=== PATIENT | female | born 1990 | race Caucasian/White ===

== ENCOUNTER → 2024-04-18 13:50 | Outpatient (REF) | payer BC, SELFPAY | LOC: RAD 13:50 | PROVIDERS: ATTENDING PHYSICIAN Nurse Practitioner Family; FAMILY PHYSICIAN Family Medicine | DX: O26.859 Spotting complicating pregnancy, unspecified trimester (principal) | CPT/HCPCS: 76801 ==

== ENCOUNTER → 2024-06-22 06:47 | Outpatient (REF) | payer OTHER, SELFPAY | LOC: PNTC 06:47 | PROVIDERS: ATTENDING PHYSICIAN Obstetrics & Gynecology | DX: Z34.80 Encounter for supervision of other normal pregnancy, unspecified trimester (principal) | CPT/HCPCS: 76805 ==

== ENCOUNTER → 2024-07-26 15:17 | Outpatient (REF) | payer OTHER, SELFPAY | LOC: PNTC 15:17 | PROVIDERS: ATTENDING PHYSICIAN Obstetrics & Gynecology | DX: O46.90 Antepartum hemorrhage, unspecified, unspecified trimester (principal) | CPT/HCPCS: 76816 ==

== ENCOUNTER → 2024-08-28 17:28 | Outpatient (REF) | payer OTHER, SELFPAY | LOC: PNTC 17:28 | PROVIDERS: ATTENDING PHYSICIAN Student in an Organized Health Care Education/Training Program | DX: O43.199 Other malformation of placenta, unspecified trimester (principal); O46.90 Antepartum hemorrhage, unspecified, unspecified trimester | CPT/HCPCS: 76816 ==

== ENCOUNTER 2024-09-04 05:01 | Observation (INO) | payer OTHER, SELFPAY ==
[2024-09-04 05:12] VITALS: BMI 24.3
[2024-09-04 05:15] VITALS: BP 110/59
== END 2024-09-04 06:30 | disposition home or self-care (01) ==
LOC: LDRP 05:01
PROVIDERS: ADMITTING PHYSICIAN Obstetrics & Gynecology
DX: Z03.79 Encounter for other suspected maternal and fetal conditions ruled out (principal)
CPT/HCPCS: G0378

== ENCOUNTER 2024-09-04 19:37 | Inpatient (IN) | payer OTHER, SELFPAY ==
[2024-09-04 19:54] VITALS: BP 104/59; BMI 24.5
[2024-09-04] MEDS: LR 1000 IV (21:39)
[2024-09-04] MEDS: AMPICILLIN 108 MG IV (21:48)
[2024-09-04 21:52] LABS: Urine Albumin Trace (Neg - Trace); Urine Bilirubin Negative (Negative); Urine Character Slightly Cloudy (Clear); Urine Color Yellow; Urine Glucose Negative (Negative); Urine Ketone Negative (Negative); Urine Leukocyte Trace (Negative); Urine Nitrite Negative (Negative); Urine Occult Blood 2+ (Negative); Urine Urobilinogen Negative (Neg - 1+)
[2024-09-04 21:55] LABS: % Basophils 0.3 % (0-2); % Eosinophils 0.5 % (0-6); % Immature Granulocytes 1.6 % (0-0.5); % Lymphocytes 16.7 % (20.5-51.1); % Monocytes 7.4 % (1.7-9.3); % Neutrophils 73.5 % (42.2-75.2); Absolute Basophils 0.1 10^3/uL (0-0.2); Absolute Eosinophils 0.1 10^3/uL (0-0.7); Absolute Immature Granulocytes 0.2 10^3/uL (0-0.05); Absolute Lymphocytes 2.5 10^3/uL (1.2-3.4); Absolute Monocytes 1.1 10^3/uL (0.1-0.6); Absolute Neutrophils 10.8 10^3/uL (1.4-6.5); Hematocrit 41.4 % (37.0-47.0); Hemoglobin 14.3 g/dL (12.0-16.0); Mean Corp Hgb Conc. 34.5 g/dL (33.0-37.0); Mean Corpuscular Hgb 31.6 pg (27.0-31.0); Mean Corpuscular Volume 91.6 fL (81.0-99.0); Mean Platelet Volume 9.9 fL (7.4-10.4); Nucleated Red Blood Cells % 0 %; Platelet Count 251 10^3/uL (130-400); Red Blood Cell Count 4.52 10^6/uL (4.20-5.40); Red Cell Dist. Width 12.2 % (11.5-14.5); White Blood Cell Count 14.7 10^3/uL (4.8-10.8)
[2024-09-04 21:58] LABS: Urine Squamous Cell 16-20 /LPF (Few)
[2024-09-04 21:59] LABS: Urine Bacteria Few (Negative); Urine Red Blood Cell 16-20 /HPF (0-2)
[2024-09-04] MEDS: CELESTONE SOLUSPAN 2 MG IM (22:05)
[2024-09-04 22:10] LABS: ALT (SGPT) 14 U/L (0-35); AST (SGOT) 27 U/L (14-36); Albumin 4.2 g/dl (3.5-5.0); Alkaline Phosphatase 85 U/L (38-126); Blood Urea Nitrogen 13 mg/dl (7-17); Calcium 9.7 mg/dl (8.4-10.2); Carbon Dioxide 24 mmol/L (22-30); Chloride 100 mmol/L (98-107); Estimated Creatinine Clearance 119 ml/min; Glucose 85 mg/dl (70-99); Sodium 131 mmol/L (135-145); Total Bilirubin 0.5 mg/dl (0.2-1.3); Total Protein 6.8 g/dl (6.3-8.2); eGFR > 60.00
--- NOTE | 2024-09-04 22:22 | CON.NEO ---
Consultation
-
Date/Time Consultation Requested: 09/04/24 @ 2130
Date/Time Consultation Performed: 09/04/24 @ 2139
Requesting Provider: Yessi Saxena
Performing Provider: Tere
Reason for Consultation: 34 yo at 31 2/7 weeks with PROM , not in labor.
Consultation - Neonatology
Maternal Labs
Blood Type: O Positive
Antibody Screen: Negative
RPR: Nonreactive
Rubella: Immune
Hep B S Ag: Negative
Hep C: Negative
HIV: Nonreactive
Group B Strep: Unknown
Chlamydia/GC: Negative
Consult
Points discussed at consult:
- Management at delivery including the possibility of CPAP/intubation/surfactant discussed
- Respiratory: RDS possibility with possibility of worsening for 24-48 hrs, management including CPAP/surfactant/ventilator support may be required
- Nutrition: Hypoglycemia, need for IV fluids, gradual feed advance, Gavage feeding, importance of colostrum feeding, initiation of expression of colostrum within 3-4 hours, availability of donor milk, safety fo donor milk etc. were discussed.
- Procedures: Intubation, CPAP, IV placement, blood tests, umbilical arterial or venous lines, gavage feedings were discussed
- CVS: possibility of PDA not discussed in detail at this time
- TOBACCO FLAVORER: Rare possibility of IVH and need for head US, grading of IVH and local [employer] effects of Grade III/IV although extremely rare at >32 weeks were discussed
- Jaundice possibility and need for phototherapy discussed
- Family Centered Care: Discussed FCC with emphasis on parental participation during sign off and during management rounds and is encouraged. Availability of megan eyes camera also discussed
- COVID-19: Visitation policy, modifications related to COVID-19, ever changing guidelines were discussed
Mom and Dad were given the opportunity to ask questions throughout and open invitation to call if any questions come as they absorb all the information given so far.
Face to Face Time
Total Gits-um-Efjf Time (in Minutes): 35 mins
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
[2024-09-04] MEDS: ERYTHROCIN 105 MG IV (23:31)
[2024-09-05] MEDS: AMPICILLIN 108 MG IV ×4 (04:37→22:00)
[2024-09-05] MEDS: ERYTHROCIN 105 MG IV ×4 (05:59→23:50)
[2024-09-05] MEDS: CELESTONE SOLUSPAN 2 MG IM (21:59)
[2024-09-06] MEDS: AMPICILLIN 108 MG IV ×3 (05:11→17:00)
[2024-09-06] MEDS: ERYTHROCIN 105 MG IV ×2 (08:27→14:26)
[2024-09-06] MEDS: ZITHROMAX 1000 MG PO (20:17)
[2024-09-06] MEDS: AMOXIL 500 MG PO (23:05)
[2024-09-07] MEDS: AMOXIL 500 MG PO ×3 (06:42→23:08)
[2024-09-07] MEDS: FLUSH (NSS) 1 FLUSH IV ×2 (10:49→21:02)
[2024-09-07 15:06] LABS: Glucose - Point of Care 101 mg/dl (70-99)
[2024-09-07 20:58] LABS: Glucose - Point of Care 96 mg/dl (70-99)
[2024-09-08] MEDS: AMOXIL 500 MG PO ×2 (06:45→19:07)
[2024-09-08 06:49] LABS: Glucose - Point of Care 77 mg/dl (70-99)
[2024-09-08 10:43] LABS: Glucose - Point of Care 82 mg/dl (70-99)
[2024-09-08 16:21] LABS: Glucose - Point of Care 100 mg/dl (70-99)
[2024-09-08 21:13] LABS: Glucose - Point of Care 93 mg/dl (70-99)
[2024-09-09] MEDS: AMOXIL 500 MG PO ×4 (00:56→23:13)
[2024-09-09 06:32] LABS: Glucose - Point of Care 89 mg/dl (70-99)
[2024-09-09 12:12] LABS: Glucose - Point of Care 94 mg/dl (70-99)
[2024-09-09 15:08] LABS: Glucose - Point of Care 88 mg/dl (70-99)
[2024-09-09 20:36] LABS: Glucose - Point of Care 99 mg/dl (70-99)
[2024-09-10 03:14] LABS: % Basophils 0.6 % (0-2); % Eosinophils 0.6 % (0-6); % Immature Granulocytes 4.5 % (0-0.5); % Lymphocytes 9.6 % (20.5-51.1); % Monocytes 10.6 % (1.7-9.3); % Neutrophils 74.1 % (42.2-75.2); Absolute Basophils 0.1 10^3/uL (0-0.2); Absolute Eosinophils 0.1 10^3/uL (0-0.7); Absolute Immature Granulocytes 0.5 10^3/uL (0-0.05); Absolute Lymphocytes 1.1 10^3/uL (1.2-3.4); Absolute Monocytes 1.2 10^3/uL (0.1-0.6); Absolute Neutrophils 8.5 10^3/uL (1.4-6.5); Hematocrit 42.7 % (37.0-47.0); Hemoglobin 14.6 g/dL (12.0-16.0); Mean Corp Hgb Conc. 34.2 g/dL (33.0-37.0); Mean Corpuscular Hgb 30.9 pg (27.0-31.0); Mean Corpuscular Volume 90.5 fL (81.0-99.0); Mean Platelet Volume 10.4 fL (7.4-10.4); Nucleated Red Blood Cells % 0 %; Platelet Count 236 10^3/uL (130-400); Red Blood Cell Count 4.72 10^6/uL (4.20-5.40); Red Cell Dist. Width 12.4 % (11.5-14.5); White Blood Cell Count 11.5 10^3/uL (4.8-10.8)
[2024-09-10] MEDS: AMOXIL 500 MG PO ×3 (08:01→22:26)
[2024-09-10] MEDS: FLUSH (NSS) 1 FLUSH IV (15:44)
[2024-09-11] MEDS: AMOXIL 500 MG PO ×2 (06:42→14:45)
[2024-09-11 17:27] VITALS: BMI 23.2
[2024-09-11] MEDS: FLUSH (NSS) 1 FLUSH IV (22:00)
[2024-09-12] MEDS: BENADRYL 50 MG PO (08:15)
[2024-09-14] MEDS: LR 1000 IV ×2 (10:26→20:40)
[2024-09-14] MEDS: VANCOCIN 275 MG IV (10:55)
[2024-09-14] MEDS: TYLENOL 1000 MG PO (15:24)
[2024-09-14] MEDS: BICITRA 30 ML PO (15:24)
[2024-09-14] MEDS: CLEOCIN 50 IV (15:24)
[2024-09-14] MEDS: GENTAMICIN 57.875 MG IV (15:43)
[2024-09-14] MEDS: PITOCIN 30 UNITS/NSS 500 ML IV (16:05)
[2024-09-14] MEDS: TYLENOL 650 MG PO (20:39)
[2024-09-14] MEDS: TORADOL 15 MG IV (22:01)
[2024-09-15] MEDS: TORADOL 15 MG IV ×3 (03:57→16:34)
[2024-09-15] MEDS: TYLENOL 650 MG PO ×2 (04:46→08:34)
[2024-09-15 05:42] LABS: Hematocrit 38.3 % (37.0-47.0); Hemoglobin 13.3 g/dL (12.0-16.0); Mean Corp Hgb Conc. 34.7 g/dL (33.0-37.0); Mean Corpuscular Hgb 31.6 pg (27.0-31.0); Platelet Count 253 10^3/uL (130-400); Red Blood Cell Count 4.21 10^6/uL (4.20-5.40); Red Cell Dist. Width 11.9 % (11.5-14.5); White Blood Cell Count 23.1 10^3/uL (4.8-10.8)
[2024-09-15] MEDS: SENOKOT-S 1 TABLET PO (07:56)
--- NOTE | 2024-09-15 08:01 | W.PN.ANS.POP ---
Anesthesia Post Operative
- Anesthesia Post Op Note
Vital Signs Stable-See Nursing Note: Yes
Airway Patent: Yes
Adequate Pain Control: Yes
Change in Mental Status: No
Current Postoperative Nausea & Vomiting: No
Anesthesia Complications: No (Pt complaining of headache, worsens with sitting.)
General Anesthetic Recall: No
Unplanned Admission: No
Post Op Hydration Adequate: Yes
[2024-09-15 08:24] LABS: Cord VBG B.E. - POC -0.9 mmol/L; Cord VBG HCO3 - POC 24 mmol/L; Cord VBG pCO2 - POC 39 mmHg; Cord VBG pO2 - POC < 40 mmHg
[2024-09-15 16:37] LABS: Syphilis/T. pallidum Ab Reflex Negative (Negative)
[2024-09-16] MEDS: MOTRIN 600 MG PO ×2 (04:08→10:05)
[2024-09-16] MEDS: TYLENOL 650 MG PO ×2 (04:08→10:05)
--- NOTE | 2024-09-16 11:35 | W.PN.ANES ---
Anesthesia Note
- -
09/16/24 11:35
Pt c/o positional frontal headache with occassional mild neck stiffness. No cranial nerve symptoms. She is asymptomatic lying supine. Patient is post on 09/14/24 at 1533. Spinal anesthesia was performed without difficulty. She reports
symptoms starting approx. 6 hours after delivery. The severity does wax and wane as she thought she was improving yesterday. We discussed conservative treatment (hydration, caffeine, and analgesics) and also an epidural blood patch if the symptoms
are deemed too severe affecting her ability to carry out daily duties. Risks and benefits were discussed at length. She will consider her options in light of the severity of her symptoms.
Active Medications
Acetaminophen (Acetaminophen 325 Mg Tablet) 650 mg PO Q4HPRN PRN
PRN Reason: mild pain
Stop: 10/12/24 16:32
Last Admin: 09/16/24 10:05 Dose: 650 mg
Calcium Carbonate (Calcium Antacid 200 Mg (Calcium Carbonate 500 Mg) Chew Tablet) 400 mg PO Q6HPRN PRN
PRN Reason: indigestion
Stop: 10/12/24 16:32
Diphenhydramine HCl (Diphenhydramine 50 Mg Capsule) 50 mg PO Q6HPRN PRN
PRN Reason: itching, rash
Stop: 10/10/24 08:06
Last Admin: 09/12/24 08:15 Dose: 50 mg
Diphtheria/Tetanus/Acell Pertussis (Adacel (Tetanus/Dipth/Acellular Pertussis) 0.5 Ml) 0.5 ml IM .ONCE ONE
Stop: 09/17/24 08:01
Oxytocin/Sodium Chloride (Pitocin 30 Units/Nss 500 Ml) 30 unit in 500 mls @ 0 mls/hr IV PRN PRN
PRN Reason: excessive bleeding
Stop: 10/12/24 16:32
Ibuprofen (Ibuprofen 600 Mg Tablet) 600 mg PO Q6HPRN PRN
PRN Reason: cramps
Stop: 10/13/24 21:59
Last Admin: 09/16/24 10:05 Dose: 600 mg
Methylergonovine Maleate (Methergine (0.2 Mg/Ml) 1 Ml Injection) 0.2 mg IM ONCE PRN PRN
PRN Reason: excessive bleeding
Metoclopramide HCl (Metoclopramide 10 Mg/2 Ml Vial) 10 mg IV Q6HPRN PRN
PRN Reason: nausea/vomiting
Stop: 10/12/24 16:32
Oxycodone/Acetaminophen (Oxycodone 5 Mg/Apap 325 Mg (Percocet)) 1 tablet PO Q4HPRN PRN
PRN Reason: moderate pain
Stop: 09/28/24 16:32
Oxycodone/Acetaminophen (Oxycodone 5 Mg/Apap 325 Mg (Percocet)) 2 tablet PO Q4HPRN PRN
PRN Reason: severe pain
Stop: 09/28/24 16:32
Prenat Multivit/[employer]/Iron/Folic Ac ( Multiple Vitamin/Minerals With Iron Tablet) 1 tablet PO DAILY JASON
Stop: 10/13/24 07:59
Last Admin: 09/16/24 10:03 Dose: Not Given
Senna/Docusate Sodium (Docusate W/Senna (Bernadette-Colace) Tablet) 1 tablet PO DAILYPRN PRN
PRN Reason: constipation
Stop: 10/12/24 16:32
Last Admin: 09/15/24 07:56 Dose: 1 tablet
Simethicone (Simethicone 80 Mg Chewable Tablet) 80 mg PO TIDPRN PRN
PRN Reason: flatulence
Stop: 10/12/24 16:32
Vital Signs
Temp Pulse Resp BP
98.0 F 67 18 104/59
09/04/24 19:54 09/04/24 19:54 09/04/24 19:54 09/04/24 19:54
Lab Results
09/15/24 04:48
09/04/24 21:36
Sodium 131 mmol/L (135-145) L 09/04/24 21:36
Potassium 4.0 mmol/L (3.5-5.1) 09/04/24 21:36
BUN 13 mg/dl (7-17) 09/04/24 21:36
Glucose 85 mg/dl (70-99) 09/04/24 21:36
Calcium 9.7 mg/dl (8.4-10.2) 09/04/24 21:36
[2024-09-17] VITALS (7 sets, daily range): BP systolic 11–125; BP diastolic 66–79
[2024-09-17] MEDS: MOTRIN 600 MG PO (01:50)
[2024-09-17] MEDS: TYLENOL 650 MG PO (01:50)
--- NOTE | 2024-09-17 11:21 | W.PN.ANES ---
Anesthesia Note
- -
09/17/24 11:21
EPIDURAL BLOOD PATCH note:
Consent obtained. Risks and benefits explained prior to procedure. Pt aggrees to proceed.
20 g IV placed with sterile chloraprep in right AC easily.
Pt sitting. Back prepped and draped sterilely with maximum barrier protection. Lido injected at the prior skin puncture site - L 3-4. 18 G epidural needle placed easily with YOANA to air. No CSF or heme noted. 20 ml autologous blood (obtained
after sterile prep to the right AC IV) was injected easily into the epidural needle. Pt reports no significant pressure symptoms. Pt told to remain supine for 2-3 hours and then to avoid heavy lifting or straining. SHe may take analgesics as
needed.
--- NOTE | 2024-09-20 11:01 | W.DS.TRANS ---
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
-
Discharge Instructions:
Discharge Diagnosis/Procedures premature rupture of membranes at 31 wks
; placental abruption, nonreassuring
status, emergent primary low transverse
section; spinal headache
Diet Regular
Activity No strenuous activity
Driving Restrictions No driving for 2 weeks
Bathing Restrictions OK to Shower
Instructions:
Stand-Alone Forms: LDRP Delivery
Changes to Home Medications: No
Discharge Medications:
DC Medications w/original date entered in [employer]
Vitamin 1 tab PO DAILY Supplement 09/26/22
ibuprofen 600 mg tablet 600 mg PO Q6HPRN PRN cramps #90 tabs 09/17/24
Home Medication Changes
Pending Results: No
Total time spent discharging patient (in min): 20
== END 2024-09-17 16:45 | disposition home or self-care (01) | DRG 786 ==
LOC: LDRP 19:37
PROVIDERS: Anesthesiology; Obstetrics & Gynecology; ADMITTING PHYSICIAN Obstetrics & Gynecology
PROC: 4A1HXCZ Monitoring of Products of Conception, Cardiac Rate, External Approach (ICD-10-PCS; 2024-09-05)
PROC: 10D00Z1 Extraction of Products of Conception, Low, Open Approach (ICD-10-PCS; 2024-09-14)
PROC: 3E0R3GC Introduction of Other Therapeutic Substance into Spinal Canal, Percutaneous Approach (ICD-10-PCS; 2024-09-17)
DX: O42.113 Preterm premature rupture of membranes, onset of labor more than 24 hours following rupture, third trimester (principal); O45.93 Premature separation of placenta, unspecified, third trimester; O99.824 Streptococcus B carrier state complicating childbirth; Z37.0 Single live birth; O99.713 Diseases of the skin and subcutaneous tissue complicating pregnancy, third trimester; T36.0X5A Adverse effect of penicillins, initial encounter; O89.4 Spinal and epidural anesthesia-induced headache during the puerperium; O43.193 Other malformation of placenta, third trimester; Z3A.32 32 weeks gestation of pregnancy; L27.0 Generalized skin eruption due to drugs and medicaments taken internally
CPT/HCPCS: 88307; 76815; 80053; 81003; 81015; 82962; 85025; 85027; 85460; 86780; 86850; 86900; 86901; 87070; 87077; 87147; J1364